=== PATIENT | female | born 1990 | race Hispanic/Latino ===

== ENCOUNTER 2021-05-10 14:14 | Outpatient (CLI) | payer MEDICAID ==
[2021-05-10] MEDS ORDERED: LACTATED RINGERS 500 ML IV ONE (17:08)
[2021-05-10] MEDS ORDERED: ACETAMINOPHEN 325 MG TAB PO ONE (17:13)
[2021-05-10 17:33] VITALS: BP 110/66
[2021-05-10 17:38] LABS: Bilirubin,Urine NEG (Negative); Blood,Urine NEG (Negative); Calcium Oxalate Crystals,Urine 3+; Color,Urine Yellow (Yellow); Mucus,Urine 1+ /HPF; Urobilinogen,Urine < 2.0 mg/dL (<2.0)
[2021-05-10] MEDS ORDERED: ACETAMINOPHEN 500 MG TAB PO ONE (18:00)
== END 2021-05-10 17:47 | disposition home or self-care (01) ==
LOC: TRG 14:14 → APU 14:35 → TRG 17:47
PROVIDERS: ATTEND Obstetrics & Gynecology
DX: O62.9 Abnormality of forces of labor, unspecified (principal); Z3A.28 28 weeks gestation of pregnancy
CPT/HCPCS: 59025; 81001; 96360

== ENCOUNTER 2021-07-05 04:00 | Outpatient (CLI) | payer MEDICAID ==
[2021-07-05] MEDS ORDERED: BUTALB/ACETAMINOPHEN/CAFFEINE TAB PO ONE (05:14)
[2021-07-05] MEDS ORDERED: LACTATED RINGERS 1,000 ML IV ONE (05:15)
[2021-07-05] MEDS ORDERED: ONDANSETRON 4 MG/2 ML INJ IV ONE (05:15)
[2021-07-05 07:21] LABS: Hematocrit 31.6 % (30.3-42.9); Mean Corpuscular HGB Conc 35 % (30-34); Mean Corpuscular Volume 81 fl (79-97); Platelet Count 151 K/mm3 (140-440); Red Blood Count 3.92 M/mm3 (3.65-5.03); Red Cell Distribution Width 15.6 % (13.2-15.2)
[2021-07-05 07:36] LABS: Bacteria,Urine 2+ /HPF (Negative); Bilirubin,Urine NEG (Negative); Blood,Urine NEG (Negative); Color,Urine Yellow (Yellow); Mucus,Urine FEW /HPF; Protein,Urine <15 mg/dL mg/dL (Negative); Urobilinogen,Urine < 2.0 mg/dL (<2.0)
[2021-07-05 07:51] LABS: Alanine Aminotransferase 10 units/L (7-56); Uric Acid 3.7 mg/dL (3.5-7.6)
[2021-07-05] MEDS ORDERED: LACTATED RINGERS 500 ML IV ONE (08:00)
[2021-07-05] MEDS ORDERED: CETIRIZINE 10 MG TAB PO SCH (08:00)
--- NOTE | 2021-07-05 08:19 | Event Note ---
Date: 07/05/21 (Headache)
[2021-07-05] MEDS ORDERED: METOCLOPRAMIDE 10 MG/2 ML INJ IV SCH (08:30)
[2021-07-05 10:29] VITALS: BP 97/52
--- NOTE | 2021-07-05 10:35 | Event Note ---
Date: 07/05/21 (Pt is feeling much better) Pt is 36+ wks, who presented to triage with c/o a LIN. She denies vaginal bleeding, LOF, ctxs, spots before her eyes, blurred vision, shortness of breath, chest pain, and upper abdominal pain. There is positive movement. Her blood pressures and pre e labs are WNL. She had one blood pressure that was 143/70. Per RN and pt the cuff was on her elbow. Category 1 monitor strip throughout triage stay. Pt desires to go home and states that her LIN feels better. She was given IV and PO medication for the LIN. Pt will have follow up visit in the office on Thursday @ 10am. Pt aware of appointment date and time.
== END 2021-07-05 10:43 | disposition home or self-care (01) ==
LOC: TRG 04:00 → APU 04:01 → TRG 10:43
PROVIDERS: ATTEND Obstetrics & Gynecology
DX: O26.893 Other specified pregnancy related conditions, third trimester (principal); R11.0 Nausea; R51.9 Headache, unspecified; Z3A.36 36 weeks gestation of pregnancy; Z79.899 Other long term (current) drug therapy
CPT/HCPCS: 36415; 81001; 82565; 83615; 84450; 84460; 84550; 85027; 87086; 96361; 96365; 96366; 96367; J2405; J2765; J7120

== ENCOUNTER 2021-09-08 17:38 | Emergency (ER) | payer MEDICAID ==
[2021-09-08] MEDS ORDERED: medroxyPROGESTERone ACETATE 5 MG TAB PO ONE (19:31)
[2021-09-08] MEDS ORDERED: ACETAMINOPHEN 500 MG TAB PO ONE (19:32)
[2021-09-08 19:43] LABS: Basophils # (Auto) 0.1 K/mm3 (0.0-0.1); Eosinophils # (Auto) 0.3 K/mm3 (0.0-0.4); Eosinophils % (Auto) 3.8 % (0.0-4.3); Hematocrit 35.8 % (30.3-42.9); Hemoglobin 11.4 gm/dl (10.1-14.3); Lymphocytes # (Auto) 3.4 K/mm3 (1.2-5.4); Lymphocytes % (Auto) 38.3 % (13.4-35.0); Mean Corpuscular HGB Conc 32 % (30-34); Mean Corpuscular Volume 81 fl (79-97); Monocytes # (Auto) 0.5 K/mm3 (0.0-0.8); Monocytes % (Auto) 5.8 % (0.0-7.3); Platelet Count 241 K/mm3 (140-440); Red Blood Count 4.44 M/mm3 (3.65-5.03); Red Cell Distribution Width 16.4 % (13.2-15.2)
--- NOTE | 2021-09-08 19:49 | Emergency Department Report ---
ED Female HPI - General Chief complaint: Vaginal Bleeding Stated complaint: VAGINAL BLEEDING X3 DAYS Source: patient Mode of arrival: Ambulatory Limitations: No Limitations - History of Present Illness Initial comments: Patient is a A1 30-year-old female who is approximately 5 weeks through presents to the ED with acute onset persistent hea vy vaginal bleeding with large blood clots for the last 12 hours. Patient states that she feels to pads per hour and that she initially was evaluated at an urgent care clinic who discharged her home but when she could contacted her VISITING TEACHER physician she was advised to come to the ED immediately for further evaluation. Patient denies dysuria, urinary frequency and urgency, nausea, vomiting, fever, chills, diarrhea, dizziness, syncope, chest pain or shortness of breath, headache, back pain or vaginal discharge. MD Complaint: vaginal bleeding, pelvic pain (Suprapubic pain) -: Sudden, hour(s) (12), This morning Location: suprapubic, other (Vaginal) Radiation: non-radiating Severity: severe Severity scale (0 -10): 8 Quality: cramping, aching Consistency: constant Improves with: none Worsens with: none Are you Now?: No (5 weeks through ) Associated Symptoms: vaginal bleeding, abdominal pain (Suprapubic pressure and pain). denies: nausea/vomiting, fever/chills, headaches, loss of appetite, dysuria, hematuria, rash, shortness of breath, syncope, other - Related Data Sexually active: Yes : 5 Para: 4 A: 1 Home Medications Medication Instructions Recorded Confirmed Last Taken Tylenol 1,000 mg PO PRN PRN 08/02/21 08/02/21 08/01/21 Previous Rx's Medication Instructions Recorded Last Taken Type Docusate Sodium [Colace] 100 mg PO BID PRN #30 capsule 08/02/21 Unknown Rx Ferrous Sulfate [Feosol 325 MG tab] 325 mg PO BID #90 tablet 08/02/21 Unknown Rx Ibuprofen [Motrin 800 MG tab] 800 mg PO TID PRN #30 tablet 08/02/21 Unknown Rx Lidocain2.5%/Prilocai2.5% [Emla] 5 gm TP ONCE #1 tube 08/02/21 Unknown Rx oxyCODONE /ACETAMINOPHEN [Percocet 1 - 2 tab PO Q6HR PRN #14 tablet 08/02/21 Unk nown Rx 5/325 mg] cephALEXin [Keflex] 500 mg PO Q8HR #30 cap 09/08/21 Unknown Rx medroxyPROGESTERone ACETATE 10 mg PO DAILY #14 tablet 09/08/21 Unknown Rx [Provera] Allergies Allergy/AdvReac Type Severity Reaction Status Date / Time No Known Allergies Allergy Verified 08/02/21 10:03 ED Review of Systems ROS: Stated complaint: VAGINAL BLEEDING X3 DAYS Other details as noted in HPI Constitutional: denies: chills, fever Eyes: denies: eye pain, eye discharge, vision change ENT: denies: ear pain, throat pain Respiratory: denies: cough, shortness of breath, wheezing Cardiovascular: denies: chest pain, palpitations Endocrine: no symptoms reported Gastrointestinal: abdominal pain (Suprapubic pressure and cramps). denies: nausea, vomiting, diarrhea Genitourinary: abnormal menses (Heavy vaginal bleeding). denies: urgency, dysuria, discharge Musculoskeletal: denies: back pain, joint swelling, arthralgia Skin: denies: rash, lesions Neurological: denies: headache, weakness, paresthesias Psychiatric: denies: anxiety, depression Hematological/Lymphatic: denies: easy bleeding, easy bruising ED Past Medical Hx - Past Medical History Previous Medical History?: Yes Hx Hypertension: No Hx Heart Attack/AMI: No Hx Congestive Heart Failure: No Hx Diabetes: No Hx Deep Vein Thrombosis: No Hx Liver Disease: No Hx Renal Disease: No Hx Sickle Cell Disease: No Hx Seizures: No Hx Asthma: No Hx COPD: No Hx HIV: No - Surgical History Past Surgical History?: Yes Additional Surgical History: - Social History Smoking Status: Never Smoker - Medications Home Medications: Home Medications Medication Instructions Recorded Confirmed Last Taken Type Docusate Sodium [Colace] 100 mg PO BID PRN #30 capsule 08/02/21 Unknown Rx Ferrous Sulfate [Feosol 325 MG tab] 325 mg PO BID #90 tablet 08/02/21 Unknown Rx Ibuprofen [Motrin 800 MG tab] 800 mg PO TID PRN #30 tablet 08/02/21 Unknown Rx Lidocain2.5%/Prilocai2.5% [Emla] 5 gm TP ONCE #1 tube 08/02/21 Unknown Rx Tylenol 1,000 mg PO PRN PRN 08/02/21 08/02/21 08/01/21 History oxyCODONE /ACETAMINOPHEN [Percocet 1 - 2 tab PO Q6HR PRN #14 tablet 08/02/21 Unknown Rx 5/325 mg] cephALEXin [Keflex] 500 mg PO Q8HR #30 cap 09/08/21 Unknown Rx medroxyPROGESTERone ACETATE 10 mg PO DAILY #14 tablet 09/08/21 Unknown Rx [Provera] ED Physical Exam - General Limitations: No Limitations General appearance: alert, in no apparent distress - Head Head exam: Present: atraumatic, normocephalic, normal inspection - Eye Eye exam: Present: normal appearance, PERRL, EOMI Pupils: Present: normal accommodation - ENT ENT exam: Present: normal exam, normal orophraynx, mucous membranes moist, TM's normal bilaterally, normal external ear exam - Neck Neck exam: Present: normal inspection, full ROM - Respiratory Respiratory exam: Present: normal lung sounds bilaterally. Absent: respiratory distress, wheezes, rales, rhonchi, chest wall tenderness, accessory muscle use, prolonged expiratory - Cardiovascular Cardiovascular Exam: Present: regular rate, normal rhythm, normal heart sounds. Absent: systolic murmur, diastolic murmur, rubs, gallop - GI/Abdominal GI/Abdominal exam: Present: soft, normal bowel sounds. Absent: tenderness, guarding, rebound, hyperactive bowel sounds, hypoactive bowel sounds, or ganomegaly - Bi-manual exam: Present: other (Pelvic exam deferred at this time) - Extremities Exam Extremities exam: Present: normal inspection, full ROM, normal capillary refill - Back Exam Back exam: Present: normal inspection, full ROM. Absent: tenderness, CVA tenderness (R), CVA tenderness (L), muscle spasm, paraspinal tenderness, vertebral tenderness - Neurological Exam Neurological exam: Present: alert, oriented X3, CN II-XII intact, normal gait, reflexes normal - Psychiatric Psychiatric exam: Present: normal affect, normal mood - Skin Skin exam: Present: warm, dry, intact, normal color. Absent: rash ED Course Vital Signs 09/08/21 19:52 Temperature 98.1 F Pulse Rate 55 L Respiratory 20 Rate Blood Pressure 117/73 [Left] O2 Sat by Pulse 98 Oximetry - Reevaluation(s) Reevaluation #1: 09/08/21 22:46 I discussed the patient's case with the VISITING TEACHER physician Dr. Larissa Estrella, the patient's VISITING TEACHER physician who also reviewed all the lab test results, came to the ED and evaluated the patient and agreed with plan of care. ED Medical Decision Making - Lab Data Result diagrams: 09/08/21 19:30 09/08/21 19:30 - Radiology Data Radiology results: report reviewed, image reviewed [facility] [address] [place] [address] Ultrasound Report Signed Patient: CELINA VALLEJO MR#: [id number] : 1990 Acct:[id number] Age/Sex: 30 / F ADM Date: 09/08/21 Loc: ED Attending Dr: Ordering Physician: LEAH FREEMAN Date of Service: 09/08/21 Procedure(s): US pelvic complete Accession Number(s): [id number] cc: LEAH FREEMAN PELVIC ULTRASOUND INDICATION: Heavy vaginal bleeding, 5 weeks post- COMPARISON: None pertinent available TECHNIQUE: Transabdominal FINDINGS: Uterus: Measures 10.2 x 5.0 x 6.8 cm. Endometrial stripe measures 4 mm. No fluid is seen within the endometrial canal. No evidence of retained products of conception is seen. No focal uterine lesions are noted. Right ovary: Measures 3 cm in length and shows no abnormalities. Blood flow is noted. Left ovary: Measures 5 cm in length and shows a 3.6 cm slightly complex cyst with a thin septation and minimal internal echoes. Ovarian blood flow is noted. No free fluid is seen. IMPRESSION: 1. No uterine abnormalities are seen. No evidence of retained products of conception. 2. Moderate size probably benign left ovarian cyst. Recommend ultrasound follow-up. Signer Name: Dhaval Alfaro MD Signed: 09/08/2021 9:53 PM Workstation Name: [id number] Transcribed By: MODESTA Dictated By: Dhaval Alfaro MD Electronically Authenticated By: Dhaval Alfaro MD Signed Date/Time: 09/08/212152 DD/ 50 TD/TT: - Medical Decision Making This is a A1 30-year-old female who is approximately 5 weeks through presents to the ED with acute onset persistent heavy vaginal bleeding with large blood clots for the last 12 hours. Patient states that she feels to pads per hour and that she initially was evaluated at an urgent care clinic who discharged her home but when she could contacted her VISITING TEACHER physician she was advised to come to the ED immediately for further evaluation. In the ED, patient is alert and oriented x3 and is not in any distr ess. Lab test results were reviewed and are all nonactionable except for urinalysis that showed significant UTI and bleeding. Pelvic ultrasound showed no uterine abnormalities are seen. No evidence of retained products of conception. It also showed moderate size probably benign left ovarian cyst. Recommend ultrasound follow-up. Patient was treated in the ED with Rocephin 1 g intramuscular injection for acute UTI. Patient also received medroxyprogesterone p.o. x1 and Tylenol 1 g p.o. x1. I discussed the patient's case with the patient's VISITING TEACHER physician Dr. Larissa Estrella who came to the ED and evaluated the patient and agreed the plan of care. Otherwise from the standpoint of the ED, patient was discharged home on oral antibiotics for acute urinary tract infection and Provera, and advised to follow-up with VISITING TEACHER physician Dr. Estrella in 3 to 5 days for reevaluation. Patient was advised return to the ED immediately if symptoms get worse. - Differential Diagnosis UTI; dysmenorrhea; ovarian cyst; ; retained products of conception Critical care attestation.: If time is entered above; I have spent that time in minutes in the direct care of this critically ill patient, excluding procedure time. ED Disposition Clinical Impression: Acute urinary tract infection, Dysfunctional uterine bleeding, Dysmenorrhea, Metrorrhagia Disposition: 01 HOME / SELF CARE / HOMELESS Is pt being admited?: No Does the pt Need Aspirin: No Condition: Stable Instructions: Urinary Tract Infection, Adult, [id number], Abnormal Uterine Bleeding, [id number], Dysmenorrhea, [id number], Metrorrhagia, [id number] Additional Instructions: All lab test results were reviewed and are all nonactionable except for urinary tract infection in urinalysis. Pelvic ultrasound showed no uterine abnormalities are seen. No evidence of retained products of conception. It also showed moderate size probably benign left ovarian cyst. Therefore take me dications with food, drink plenty of fluids and follow-up with your VISITING TEACHER physician in 5 to 7 days for reevaluation. Return to the ED immediately if symptoms get worse. Prescriptions: cephALEXin [Keflex] 500 mg PO Q8HR #30 cap medroxyPROGESTERone ACETATE [Provera] 10 mg PO DAILY #14 tablet Referrals: LARISSA ESTRELLA MD [Staff Physician] - 3-5 Days Time of Disposition: 22:43 Print Language: SWEDISH
[2021-09-08 19:53] VITALS: BP 117/73
[2021-09-08 19:58] LABS: Blood Urea Nitrogen 15 mg/dL (7-17); Calcium 8.8 mg/dL (8.4-10.2); Hemolysis Index 12
[2021-09-08 20:01] LABS: Alanine Aminotransferase 40 units/L (7-56); Albumin 4.3 g/dL (3.9-5)
[2021-09-08 20:09] LABS: Bilirubin,Direct < 0.2 mg/dL (0-0.2)
[2021-09-08 20:10] LABS: BUN/Creatinine Ratio 21
[2021-09-08 20:22] LABS: Mucus,Urine 3+ /HPF
[2021-09-08 20:24] LABS: RBC,Urine > 182.0 /HPF (0.0-6.0)
[2021-09-08 20:27] LABS: Bilirubin,Urine Color Interference (Negative); Color,Urine Red (Yellow)
[2021-09-08 20:28] LABS: Blood,Urine TNR (Negative); Ictotest,Urine TNR (Negative); PH,Urine TNR (5.0-7.0); Protein,Urine TNR mg/dL (Negative); Urobilinogen,Urine TNR mg/dL (<2.0)
[2021-09-08] MEDS ORDERED: LIDOCAINE-MPF (1%) 10 MG/1 ML VIAL 5 ML INFILTRATI ONE (20:50)
--- NOTE | 2021-09-08 21:57 | Ultrasound Report ---
PELVIC ULTRASOUND INDICATION: Heavy vaginal bleeding, 5 weeks post- COMPARISON: None pertinent available TECHNIQUE: Transabdominal FINDINGS: Uterus: Measures 10.2 x 5.0 x 6.8 cm. Endometrial stripe measures 4 mm. No fluid is seen within the e ndometrial canal. No evidence of retained products of conception is seen. No focal uterine lesions ar e noted. Right ovary: Measures 3 cm in length and shows no abnormalities. Blood flow is noted. Left ovary: Measures 5 cm in length and shows a 3.6 cm slightly complex cyst with a thin septation an d minimal internal echoes. Ovarian blood flow is noted. No free fluid is seen. IMPRESSION: 1. No uterine abnormalities are seen. No evidence of retained products of conception. 2. Moderate size probably benign left ovarian cyst. Recommend ultrasound follow-up. Signer Name: Dhaval Alfaro MD Signed: 09/08/2021 9:53 PM Workstation Name: [id number]
--- NOTE | 2021-09-08 23:42 | Consultation ---
History of Present Illness Consult date: 09/08/21 Reason for consult: menorrhagia History of present illness: Patient is a who is 5 weeks s/p PLTCS and BTL presenting with vaginal bleeding. Notes it began on yesterday and is heavy. Notes using at least 1 pad per hour. This morning states she soaked through a pad and had bleeding that dripped down her leg. During that time she began to have chills. Concerned she may be hemorrhaging. Called the answering service and was instructed to present to the ED> Went to an urgent care near her home where labs were drawn and she was told they were fine and to follow up with OB. Decided to present to [facility] after being instructed to present to the ED for evaluation. Denies abdominal pain, n/v, lightheadedness and dizziness. 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) Family/Genetic History: none Social history: no significant social history - Obstetrical History : 5 Para: 5 Hx # Term Pregnancies: 4 Number of Pregnancies: 0 Spontaneous Abortions: 1 Induced : 0 Number of Living Children: 4 Medications and Allergies Allergies Allergy/AdvReac Type Severity Reaction Status Date / Time No Known Allergies Allergy Verified 08/02/21 10:03 Home Medications Medication Instructions Recorded Confirmed Last Taken Type Docusate Sodium [Colace] 100 mg PO BID PRN #30 capsule 08/02/21 Unknown Rx Ferrous Sulfate [Feosol 325 MG tab] 325 mg PO BID #90 tablet 08/02/21 Unknown Rx Ibuprofen [Motrin 800 MG tab] 800 mg PO TID PRN #30 tablet 08/02/21 Unknown Rx Lidocain2.5%/Prilocai2.5% [Emla] 5 gm TP ONCE #1 tube 08/02/21 Unknown Rx Tylenol 1,000 mg PO PRN PRN 08/02/21 08/02/21 08/01/21 History oxyCODONE /ACETAMINOPHEN [Percocet 1 - 2 tab PO Q6HR PRN #14 tablet 08/02/21 Unknown Rx 5/325 mg] cephALEXin [Keflex] 500 mg PO Q8HR #30 cap 09/08/21 Unknown Rx medroxyPROGESTERone ACETATE 10 mg PO DAILY #14 tablet 09/08/21 Unknown Rx [Provera] Review of Systems All systems: negative Genitourinary: vaginal bleeding - Vital Signs Vital signs: Vital Signs Temp Pulse Resp BP Pulse Ox 98.1 F 55 L 20 117/73 98 09/08/21 19:52 09/08/21 19:52 09/08/21 19:52 09/08/21 19:52 09/08/21 19:52 Temp Pulse Resp BP Pulse Ox 98.1 F 55 L 20 117/73 98 09/08/21 19:52 09/08/21 19:52 09/08/21 19:52 09/08/21 19:52 09/08/21 19:52 - Physical Exam Abdomen: Positive: normal appearance, soft, other (incision well-healed) Genitourinary (Female): Positive: normal external genitalia Vagina: Positive: other (dark blood in the vagina, cleaned and no lesions noted) Cervix: Positive: other (No lesions or active bleeding noted ) Uterus: Positive: other (difficult to palpate secondary to hsbitus) Extremities: Positive: normal Results Result Diagrams: 09/08/21 19:30 09/08/21 19:30 Abnormal lab results 09/08/21 09/08/21 09/08/21 Range/Units 19:30 19:30 19:54 MCH 26 L (28-32) pg RDW 16.4 H (13.2-15.2) % Lymph % (Auto) 38.3 H (13.4-35.0) % Carbon Dioxide 21 L (22-30) mmol/L Urine WBC (Auto) 145.0 H (0.0-6.0) /HPF U Epithel Cells (Auto) 29.0 H (0-13.0) /HPF All other labs normal. Ultrasound: report reviewed Assessment and Plan - Patient Problems (1) Dysfunctional uterine bleeding Current Visit: Yes Status: Acute Plan to address problem: U/S reviewed and no abnormalities of the uterus noted H/H appropriate at 11.4 Discussed with patient likely experiencing menses Provera previously given in the ED. May continue with course of Provera, 10 for 5-10 days. Patient encouraged to schedule follow up appointment within the next week.
== END 2021-09-08 23:25 | disposition home or self-care (01) ==
LOC: ED 17:38
DX: N39.0 Urinary tract infection, site not specified (principal); N93.9 Abnormal uterine and vaginal bleeding, unspecified; N92.1 Excessive and frequent menstruation with irregular cycle; N94.6 Dysmenorrhea, unspecified; Z98.890 Other specified postprocedural states; Z79.899 Other long term (current) drug therapy
CPT/HCPCS: 36415; 76856; 80048; 80076; 81001; 84702; 85025; 96372; 99284; J0696